=== PATIENT | female | born 1960 ===

== ENCOUNTER 2017-07-02 08:30 | Observation (INO) | payer MEDICAID ==
[2017-07-02 10:02] LABS: BASO # 0.1 K/uL (0.0-0.2); EOS # 0.1 K/uL (0.0-0.7); HEMATOCRIT 39.9 % (34.0-47.0); LYMPH # 2.4 K/uL (1.0-4.3); LYMPH % 34.9 % (20.0-40.0); MEAN CELL VOLUME 88.6 fl (81.0-99.0); MEAN CORPUSCULAR HEMOGLOBIN 28.7 pg (27.0-31.0); MEAN CORPUSCULAR HGB CONC 32.3 g/dL (33.0-37.0); MEAN PLATELET VOLUME 10.2 fl (7.2-11.7); MONO # 0.5 K/uL (0.0-0.8); NEUT # 3.9 K/uL (1.8-7.0); NEUT % 56.1 % (50.0-75.0); RED CELL DISTRIBUTION WIDTH 14.4 % (11.5-14.5); WHITE BLOOD COUNT 6.9 K/uL (4.8-10.8)
[2017-07-02 10:25] LABS: ALCOHOL SERUM < 10 mg/dl (0-10); BLOOD UREA NITROGEN 19 mg/dl (7-17); CALCIUM 9.1 mg/dL (8.4-10.2); CARBON DIOXIDE 24 mmol/L (22-30); CHLORIDE 107 mmol/L (98-107); GFR AFRICAN-AMERICAN > 60; GLUCOSE,RANDOM 104 mg/dL (65-105); SODIUM 141 mmol/l (132-148)
--- NOTE | 2017-07-02 11:12 | ED PDOC ---
HPI: Psych/Substance Abuse Time Seen by Provider: 07/02/17 09:00 Chief Complaint (Nursing): Psychiatric Evaluation Chief Complaint (Provider): crisis evaluation Onset/Duration Of Symptoms: Unknown Additional Complaint(s): Rosa Maria Garay is a 57 year old female, with a previous medical history of schizophrenia, who was sent to the ED by her family for crisis evaluation after the patient reported seeing and talking to her father. Family reports patient's father is and patient is noncompliant with her medications. Patient is currently noncoherent but is denying any medical complaints and reports no hallucinations. PMD: none provided Past Medical History Vital Signs: Last Vital Signs Temp 98.2 F 07/02/17 08:42 Pulse 88 07/02/17 08:42 Resp 16 07/02/17 08:42 BP 154/81 H 07/02/17 08:42 Pulse Ox 98 07/02/17 08:42 - Medical History PMH: Anxiety, Depression, HTN, Schizophrenia Denies: Chronic Kidney Disease - Surgical History Surgical History: No Surg Hx - Family History Family History: States: Unknown Family Hx - Home Medications Home Medications: Ambulatory Orders Medication Instructions Recorded Unobtainable 07/02/17 - Allergies Allergies/Adverse Reactions: Allergies Allergy/AdvReac Type Severity Reaction Status Date / Time No Known Allergies Allergy Verified 07/02/17 08:44 Review of Systems Review Of Systems: ROS cannot be obtained secondary to pt's inabilty to answer questions. (patient is noncoherent) Psych: Positive for: Other (auditory and visual hallucinations ) Physical Exam - Reviewed Nursing Documentation Reviewed: Yes Vital Signs Reviewed: Yes - Physical Exam Appears: Positive for: Well, Non-toxic, No Acute Distress Cardiovascular/Chest: Positive for: Regular Rate, Rhythm Respiratory: Positive for: CNT, Normal Breath Sounds Gastrointestinal/Abdominal: Positive for: Normal Exam, Bowel Sounds, Soft. Negative for: Tenderness Neurologic/Psych: Positive for: Alert. Negative for: Oriented - Laboratory Results Result Diagrams: 07/02/17 09:40 07/02/17 09:40 - ECG O2 Sat by Pulse Oximetry: 98 (RA) Pulse Ox Interpretation: Normal Medical Decision Making Medical Decision Making: Initial Impression: hallucinations Initial Plan: * 1:1 observation * EKG * urine drug screen * crisis evaluation * urinalysis * ED observation * alcohol serum * acetaminophen * salicylate * reevaluation labs urine all done. 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 Naya Lopez. Pending [facility] [place] evaluation. Scribe Attestation: Documented by Naya Styles, acting as a scribe for Adriana Serrano MD. Provider Scribe Attestation: All medical record entries made by the Scribe were at my direction and personally dictated by me. I have reviewed the chart and agree that the record accurately reflects my personal performance of the history, physical exam, medical decision making, and the department course for this patient. I have also personally directed, reviewed, and agree with the discharge instructions and disposition. ED OBSERVATION Date of observation admission: 07/02/17 Time of observation admission: 09:28 - Observation admission statement Patient is being placed in observation because:: extensive ED workup - Goals of Observation Goals of observation are:: ED workup results and resolution of symptoms Disposition - Clinical Impression Clinical Impression: Schizophrenia - Patient ED Disposition Is Patient to be Admitted: Transfer of Care - Disposition Disposition: Transfer of Care Disposition Time: 17:00 Condition: STABLE Patient Signed Over To: Naya Lopez
[2017-07-02 13:26] LABS: RBC URINE 2 /hpf (0-3); URINE BACTERIA OCC (<OCC); URINE BILIRUBIN NEGATIVE (NEGATIVE); URINE BLOOD SMALL (NEGATIVE); URINE COLOR YELLOW (YELLOW); URINE GLUCOSE (UA) NEG (Normal); URINE KETONE TRACE mg/dL (NEGATIVE); URINE LEUKOCYTE ESTERASE SMALL Leu/uL (Negative); URINE PROTEIN NEGATIVE (NEGATIVE); URINE UROBILINOGEN 0.2-1.0 mg/dL (0.2-1.0); WBC URINE 3 /hpf (0-5)
--- NOTE | 2017-07-02 17:28 | ED PDOC ---
- Laboratory Results Result Diagrams: 07/02/17 09:40 07/02/17 09:40 - ECG O2 Sat by Pulse Oximetry: 98 (RA) Pulse Ox Interpretation: Normal Medical Decision Making Medical Decision Making: Time: 17:00 --Pt signed out by Dr. Wright pending [facility] screening. --Patient is resting comfortably with stable vital signs. Time: 1829 --Patient continues to rest comfortably with stable vitals. Time: 1999 --Patient is resting comfortably. Time: 2129 --Patient is resting comfortably. Time: 2299 --Patient is resting comfortably. Scribe Attestation: Documented by Aminta Silverman, acting as a scribe for Naya Lopez MD. Provider Scribe Attestation: All medical record entries made by the Scribe were at my direction and personally dictated by me. I have reviewed the chart and agree that the record accurately reflects my personal performance of the history, physical exam, medical decision making, and the department course for this patient. I have also personally directed, reviewed, and agree with the discharge instructions and disposition. Disposition - Clinical Impression Clinical Impression: Schizophrenia - POA Present On Arrival: None - Disposition Disposition: Transfer of Care Disposition Time: 00:00 Condition: STABLE Patient Signed Over To: Lulú Espana Handoff Comments: Pending [facility] screening.
--- NOTE | 2017-07-03 00:11 | ED PDOC ---
- Laboratory Results Result Diagrams: 07/02/17 09:40 07/02/17 09:40 - ECG O2 Sat by Pulse Oximetry: 98 (RA) Pulse Ox Interpretation: Normal Medical Decision Making Medical Decision Making: Receiving Sign Out: Patient signed out to me by Dr. Lopez pending [facility] evaluation. Pt medically cleared by Dr. Wright. Scribe Attestation: Documented by Mabel Medina, acting as a scribe for Lulú Espana MD. Provider Scribe Attestation: All medical record entries made by the Scribe were at my direction and personally dictated by me. I have reviewed the chart and agree that the record accurately reflects my personal performance of the history, physical exam, medical decision making, and the department course for this patient. I have also personally directed, reviewed, and agree with the discharge instructions and disposition. Disposition Counseled Patient/Family Regarding: Studies Performed, Diagnosis - Clinical Impression Clinical Impression: Schizophrenia - POA Present On Arrival: None - Disposition Disposition: Transfer of Care Disposition Time: 07:00 Condition: STABLE Patient Signed Over To: Hermelindo Brice Jr. Progress Note - Review of Symptoms Events since last encounter: Time: 0130 Pt resting in room, vitals stable. Time: 0209 Pt seen and evaluated by [facility] team. Pt is accepted to [facility], currently pending a bed. CXR ordered. Time: 0339 Pt resting in room, vitals stable. Time: 0530 Pt resting in room, no acute distress.
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
[2017-07-03 08:56] VITALS: RESP 20
--- NOTE | 2017-07-03 08:59 | RAD ---
HISTORY: clearance COMPARISON: No prior. TECHNIQUE: Chest PA and lateral FINDINGS: LUNGS: No active pulmonary disease. PLEURA: No significant pleural effusion identified. No pneumothorax apparent. CARDIOVASCULAR: Normal. OSSEOUS STRUCTURES: No significant abnormalities. VISUALIZED UPPER ABDOMEN: Normal. OTHER FINDINGS: None. IMPRESSION: No acute cardiopulmonary disease is identified.
[2017-07-03 10:41] VITALS: BP 113/68; PULSE 62; TEMP 98
[2017-07-03 11:57] VITALS: O2SAT 98
--- NOTE | 2017-07-04 11:41 | CARD ---
APPROVED REPORT EKG Measurement Heart [id number] <Conclusion> Normal sinus rhythm Nonspecific ST abnormality Abnormal ECG
== END 2017-07-03 11:20 ==
LOC: H.ER 08:30 → H.EROBSV 09:28
PROVIDERS: ADMIT Emergency Medicine; ATTEND Emergency Medicine
DX: F20.9 Schizophrenia, unspecified (principal); I10 Essential (primary) hypertension; Z87.891 Personal history of nicotine dependence; Z91.14 Patient's other noncompliance with medication regimen; F32.9 Major depressive disorder, single episode, unspecified; F41.9 Anxiety disorder, unspecified
CPT/HCPCS: 71020; 80048; 81003; 85025; 93005; 99285; G0378; G0480